=== PATIENT | male | born 1980 | race Caucasian/White ===

== ENCOUNTER 2018-03-29 10:54 | Emergency (ER) | payer BC ==
[2018-03-29] MEDS ORDERED: Aspirin 81 MG Tab.Chew PO ONE (11:36)
[2018-03-29] MEDS ORDERED: Alum Hydrox/Mag Hydrox/Simeth 15 ML, Lidocaine 2% 15 ML PO ONE ×2 (11:37)
--- NOTE | 2018-03-29 11:43 | EDM.PDOC ---
ED HPI GENERAL MEDICAL PROBLEM - General Chief Complaint: Chest Pain Stated Complaint: CHEST PAINS Time Seen by Provider: 03/29/18 11:25 Source of Information: Reports: Patient, Old Records, RN History Limitations: Reports: No Limitations - History of Present Illness INITIAL COMMENTS - FREE TEXT/NARRATIVE: 37 yo male here with epigastric pains slowly progessive over the past several weeks. Pain seems at times worse if he lies down. Not worse with exertion. No pHx of HTN. Is on no meds. No nausea, SOB, or diaphoresis. Partial relief with antacids. Is a non-smoker. No personal hx of CAD or AODM. Onset: Gradual Onset Date: 03/03/18 Duration: Week(s):, Getting Worse Location: Reports: Chest, Abdomen (epigastrium) Quality: Reports: Burning, Pressure Severity: Moderate Improves with: Reports: Other (? sitting up/antacids) Worsens with: Reports: Other (? 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: Reports: Other (see below) (none) Middle Chest Pain Score (Numeric/FACES): 3 - Related Data Allergies Allergy/AdvReac Type Severity Reaction Status Date / Time amoxicillin Allergy Abdominal Verified 03/29/18 11:18 Pain Home Meds: Home Meds NK [No Known Home Meds] 03/29/18 [History] Past Medical History HEENT History: Reports: Impaired Vision Respiratory History: Reports: SOB, Other (See Below) Other Respiratory History: SOB with activity recently Gastrointestinal History: Reports: Other (See Below) Other Gastrointestinal History: feels bloated Endocrine/Metabolic History: Reports: Obesity/BMI 30+ - Infectious Disease History Infectious Disease History: Reports: Chicken Pox - Past Surgical History Head Surgeries/Procedures: Reports: None Respiratory Surgical History: Reports: None Dermatological Surgical History: Reports: None Social & Family History - Tobacco Use Smoking Status *Q: Never Smoker Second Hand Smoke Exposure: No - Caffeine Use Caffeine Use: Reports: Soda - Recreational Drug Use Recreational Drug Use: No ED ROS GENERAL - Review of Systems Review Of Systems: See Below Constitutional: Reports: No Symptoms HEENT: Reports: No Symptoms Respiratory: Reports: No Symptoms Cardiovascular: Reports: Chest Pain (low, central) Endocrine: Reports: No Symptoms GI/Abdominal: Reports: Abdominal Pain (epigastric). Denies: Black Stool, Bloody Stool, Constipation, Diarrhea, Distension, Hematemesis, Hematochezia, Nausea, Vomiting : Reports: No Symptoms Musculoskeletal: Reports: No Symptoms Skin: Reports: No Symptoms Neurological: Reports: No Symptoms Psychiatric: Reports: No Symptoms ED EXAM, GENERAL - Physical Exam Exam: See Below Exam Limited By: No Limitations General Appearance: Alert, WD/WN, No Apparent Distress Eye Exam: Bilateral Eye: Normal Inspection Ears: Normal External Exam, Normal Canal, Hearing Grossly Normal Ear Exam: Bilateral Ear: Auricle Normal, Canal Normal Nose: Normal Inspection, Normal Mucosa, No Blood Throat/Mouth: Normal Inspection, Normal Lips, Normal Oropharynx, Normal Voice, No Airway Compromise Head: Atraumatic, Normocephalic Neck: Normal Inspection Respiratory/Chest: No Respiratory Distress, Lungs Clear, Normal Breath Sounds, No Accessory Muscle Use, Chest Non-Tender Cardiovascular: Regular Rate, Rhythm, No Edema GI/Abdominal: Normal Bowel Sounds, Soft, Non-Tender, No Distention Back Exam: Normal Inspection. No: CVA Tenderness (R), CVA Tenderness (L) Extremities: Normal Inspection, Normal Range of Motion, Non-Tender, No Pedal Edema Neurological: Alert, Oriented, CN II-XII Intact, Normal Cognition, No Motor/ Sensory Deficits Psychiatric: Normal Affect, Normal Mood Skin Exam: Warm, Dry, Intact, Normal Color, No Rash EKG INTERPRETATION EKG Date: 03/29/18 Time: 11:35 Rhythm: NSR Rate (Beats/Min): 60 [place]: Normal P-Wave: Present QRS: Normal ST-T: Normal QT: Normal Comparison: NA - No Prior EKG Course - Vital Signs Last Recorded V/S: Last Vital Signs Temp 36.1 C 03/29/18 12:18 Pulse 54 L 03/29/18 12:18 Resp 15 03/29/18 12:18 BP 122/77 03/29/18 12:18 Pulse Ox 97 03/29/18 12:18 - Orders/Labs/Meds Orders: Active Orders 24 hr Category Date Time Status Cardiac Monitoring [RC] .As Directed Care 03/29/18 11:37 Active EKG Documentation Completion [RC] ASDIRECTED Care 03/29/18 11:19 Active EKG 12 Lead [EK] Routine Ther 03/29/18 11:19 Ordered Labs: Laboratory Tests 03/29/18 Range/Units 11:37 Sodium 139 L (140-148) mmol/L Potassium 4.1 (3.6-5.2) mmol/L Chloride 101 (100-108) mmol/L Carbon Dioxide 29 (21-32) mmol/L Anion Gap 13.1 (5.0-14.0) mmol/L BUN 15 (7-18) mg/dL Creatinine 1.1 (0.8-1.3) mg/dL Est Cr Clr Drug Dosing 93.09 mL/min Estimated GFR (MDRD) > 60 (>60) Glucose 91 (74-106) mg/dL Calcium 9.6 (8.5-10.1) mg/dL Troponin I < 0.017 (0.000-0.056) ng/mL Meds: Medications Discontinued Medications Generic Name Dose Route Start Last Admin Trade Name Freq PRN Reason Stop Dose Admin Aspirin 324 mg 03/29/18 11:36 03/29/18 11:43 Aspirin PO 03/29/18 11:37 324 mg ONETIME ONE Administration Al Hydroxide/Mg Hydroxide 15 0 ml 03/29/18 11:37 03/29/18 11:43 ml/ Lidocaine HCl 15 ml PO 03/29/18 11:38 30 ml ONETIME ONE Administration Departure - Departure Time of Disposition: 12:23 Disposition: Home, Self-Care 01 Condition: Good Clinical Impression: Gastritis Qualifiers: Gastritis type: unspecified gastritis Chronicity: acute Gastritis bleeding: without bleeding Qualified Code(s): K29.00 - Acute gastritis without bleeding Instructions: Gastritis, Adult, [id number] Referrals: Tremaine Clark MD [Primary Care Provider] - Forms: ED Department Discharge Additional Instructions: Take famotidine 40 mg every evening starting today. Return a stool specimen for H. pylori testing. Return for exercise stress test to make sure this is not your heart. Return here if you are worse. See your provider a couple days after your stress test. - My Orders Last 24 Hours: My Active Orders 03/29/18 11:19 EKG Documentation Completion [RC] ASDIRECTED EKG 12 Lead [EK] Routine 03/29/18 11:37 Cardiac Monitoring [RC] .As Directed - Assessment/Plan Last 24 Hours: My Active Orders 03/29/18 11:19 EKG Documentation Completion [RC] ASDIRECTED EKG 12 Lead [EK] Routine 03/29/18 11:37 Cardiac Monitoring [RC] .As Directed
== END 2018-03-29 12:38 | disposition home or self-care (01) ==
LOC: JP.ED 10:54
DX: K29.00 Acute gastritis without bleeding (principal); Z88.1 Allergy status to other antibiotic agents
CPT/HCPCS: 36415; 80048; 84484; 93005; 99285; A9270

== ENCOUNTER 2018-04-19 07:29 | Day surgery (SDC) | payer BC ==
[~2018-04-19 07:29] MED LIST: fentaNYL 100 MCG/2 ML SDV ONE
[2018-04-19] MEDS ORDERED: fentaNYL 100 MCG/2 ML SDV ONE (07:35)
[2018-04-19] MEDS ORDERED: Propofol 200 MG/20 ML SDV ONE (07:35)
[2018-04-19] MEDS ORDERED: Midazolam 1 MG/ML 2 ML SDV ONE (07:35)
[2018-04-19] MEDS ORDERED: Dextrose 5%-Lactated Ringers 1,000 ML IV SCH (08:00)
[2018-04-19] MEDS ORDERED: Glycopyrrolate 0.2 MG/ML 2 ML SDV IVPUSH ONE (08:45)
--- NOTE | 2018-04-26 12:59 | OR ---
DATE OF PROCEDURE: 04/19/2018 PREOPERATIVE DIAGNOSIS: Upper abdominal pain. POSTOPERATIVE DIAGNOSIS: Upper abdominal pain associated with small hiatal hernia with loss of esophagogastric angle with associated minimal gross inflammation. OPERATIVE PROCEDURE: Esophagogastroduodenoscopy with: 1. Biopsies of esophagogastric junction for histologic evaluation. 2. Biopsies of antrum for CLOtest. ANESTHESIA: IV sedation. INDICATIONS FOR PROCEDURE: This is a 37-year-old presenting with a picture of some upper abdominal discomfort, some nausea, and bloating, particularly in the postprandial period, recently was started on Pepcid which he thinks has not helped significantly. The plan is to proceed with upper endoscopy with biopsies as indicated. Potential risks including bleeding and perforation were discussed, and the patient wishes to proceed. DETAILS OF PROCEDURE: The patient was taken to the operating room and placed in a left lateral decubitus position. IV sedation was administered after which the upper GI endoscope was passed orally through the length of the esophagus into the stomach with retroflexion view of the fundus and thereafter through the pyloric channel and into the duodenum to the junction of the third and fourth portions. Findings included a small hiatal hernia. This was associated with loss of esophagogastric junction angle. The view from the distal esophagus and the stomach was fairly wide-open. This was associated, however, with minimal gross inflammation. The scope was then passed further into the stomach, and retroflexion revealed the hiatal hernia once again otherwise, no abnormalities were noted from there or into the distal stomach. The pyloric channel and visualized portions of the duodenum were unremarkable. At this point, biopsies were obtained from the antrum to establish the patient's H. pylori status, and then multiple biopsies were obtained from the esophagogastric junction for histologic evaluation. Minimal bleeding from the biopsy sites was seen and the procedure concluded. The patient was taken to the recovery room in satisfactory condition. We will have the patient continue the Pepcid at this point, but the endoscopic findings today do not satisfactorily explain his symptoms. The plan will be to proceed next with a CCK-stimulated HIDA scan to rule out biliary dyskinesia. This will be set up for this coming Thursday, and I will see him after the exam has been completed and go from there based on those findings. Kimani Eng MD /[id number]
== END 2018-04-19 11:32 | disposition home or self-care (01) ==
LOC: JP.SDS 07:29
PROVIDERS: ATTEND Surgery
DX: R10.10 Upper abdominal pain, unspecified (principal); K20.0 Eosinophilic esophagitis; K21.9 Gastro-esophageal reflux disease without esophagitis; K44.9 Diaphragmatic hernia without obstruction or gangrene; K22.0 Achalasia of cardia; Z88.0 Allergy status to penicillin
CPT/HCPCS: 43239; 87081; J2250; J2704; J3010; J3490; J7042; 88305

== ENCOUNTER 2018-05-07 05:31 | Day surgery (SDC) | payer BC ==
[2018-05-07] MEDS ORDERED: Celecoxib 200 MG Cap PO ONE (05:45)
[2018-05-07] MEDS ORDERED: Acetaminophen 500 MG Tab PO ONE (05:45)
[2018-05-07] MEDS ORDERED: Bupivacaine 0.5%/EPINEPHrine 1:200,000 50 ML MDV ONE (06:42)
[2018-05-07] MEDS ORDERED: Propofol 200 MG/20 ML SDV ONE (07:07)
[2018-05-07] MEDS ORDERED: Neostigmine Methylsulfate 1 MG/ML 5 ML Syringe ONE (07:07)
[2018-05-07] MEDS ORDERED: Midazolam 1 MG/ML 2 ML SDV ONE (07:07)
[2018-05-07] MEDS ORDERED: fentaNYL 250 MCG/5 ML SDV ONE (07:07)
[2018-05-07] MEDS ORDERED: Glycopyrrolate 0.2 MG/ML 5 ML MDV ONE (07:07)
[2018-05-07] MEDS: Dextrose 5%-Lactated Ringers 1,000 ML IV SCH ×2 (07:07→14:37)
[2018-05-07] MEDS ORDERED: Rocuronium 50 MG/5 ML Vial ONE (07:07)
[2018-05-07] MEDS ORDERED: Ondansetron 4 MG/2 ML SDV ONE (07:07)
[2018-05-07] MEDS ORDERED: Dexamethasone 4 MG/ML SDV ONE (07:07)
[2018-05-07] MEDS ORDERED: cefOXitin 2 GM in Sodium Chloride 0.9% 50 ML IV ONE (07:15)
[2018-05-07] MEDS ORDERED: Ketamine 500 MG/5 ML MDV IV SCH (07:30)
[2018-05-07] MEDS ORDERED: Ropivacaine 56 ML, Dexamethasone 8 MG, EPINEPHrine 0.4 MG, Sodium Chloride 0.9% 21.6 ML NERVRT SCH ×4 (07:30)
[2018-05-07] MEDS ORDERED: Ketorolac 60 MG/2 ML SDV ONE (08:12)
[2018-05-07] MEDS ORDERED: hydrOXYzine HCl 100 MG/2 ML SDV IM ONE (08:37)
[2018-05-07] MEDS ORDERED: HYDROmorphone 0.5 MG/0.5 ML Syringe IVPUSH PRN (09:56)
[2018-05-07] MEDS ORDERED: HYDROmorphone 1 MG/ML Syringe IV PRN (09:56)
[2018-05-07] MEDS ORDERED: Ondansetron 4 MG/2 ML SDV IVPUSH PRN (09:58)
[2018-05-07] MEDS ORDERED: Pantoprazole 40 MG Vial IVPUSH SCH (11:00)
[2018-05-07] MEDS: Acetaminophen/oxyCODONE 325-5 MG Tab PO PRN ×2 (12:47→19:43)
[2018-05-07] MEDS: cefOXitin 2 GM in Sodium Chloride 0.9% 50 ML IV SCH ×2 (14:39→19:43)
[2018-05-08] MEDS: cefOXitin 2 GM in Sodium Chloride 0.9% 50 ML IV SCH (02:44)
[2018-05-08] MEDS ORDERED: Pantoprazole 40 MG Tab.CR PO SCH (07:30)
--- NOTE | 2018-05-08 09:50 | DISCH ---
ADMISSION DIAGNOSIS: Biliary dyskinesia. DISCHARGE DIAGNOSES: Laparoscopic cholecystectomy, umbilical hernia repair for biliary dyskinesia and umbilical hernia. Date of surgery, 05/07/2018. HISTORY: Agustin Fernando is a 38-year-old male with biliary dyskinesia. After preoperative evaluation and discussion of possible risks and possible complications, he wished to proceed with surgical procedure. HOSPITAL COURSE: Agustin had his surgery on 05/07/2018. He had no operative complications. On postoperative day #1, he was able to be discharged to home. The pain was well managed. Vital signs stable. Activity good. Intake and output adequate. PHYSICAL EXAMINATION: GENERAL: Agustin is a 38-year-old male. VITAL SIGNS: Height is 5 feet 10 inches and weight is 237 pounds. TPR 96.4, 82, 16, and blood pressure 118/71. HEENT: Negative. NECK: Supple. HEART: Regular rate and rhythm. LUNGS: Clear. ABDOMEN: Sutures intact. Incisions look good. Abdominal binder is on. EXTREMITIES: Without peripheral edema. DISPOSITION: Discharged to home. CONDITION: Stable and improving. FOLLOWUP APPOINTMENT: Zoey Lau PA-C, 05/06/2018 at 10:15 a.m. HOME MEDICATIONS: 1. Percocet 5/325 mg one q.3 hours p.r.n. pain, #40. 2. Famotidine 40 mg oral daily. 3. Multivitamin one daily. DIET: Usual diet as tolerated. Drink 8 to 10 glasses of water a day. ACTIVITY: No lifting greater than 10 pounds for 2 weeks. Driving: Do not drive for 1 week and while on pain medication. Shower/bathing, may shower. DISCHARGE INSTRUCTIONS: Notify provider if any fever, increased pain, nausea, or vomiting. Keep site clean and dry. Wear abdominal binder for 2 weeks and then as tolerated. Use incentive spirometer 10 times every hour while awake.
[2018-05-08] MEDS: Acetaminophen/oxyCODONE 325-5 MG Tab PO PRN (10:11)
[2018-05-08] MEDS ORDERED: Magnesium Hydroxide 400 MG/5 ML Susp 30 ML Cup PO ONE (11:24)
--- NOTE | 2018-05-17 12:28 | OR ---
DATE OF PROCEDURE: 05/07/2018 PREOPERATIVE DIAGNOSIS: Biliary dyskinesia. POSTOPERATIVE DIAGNOSES: 1. Biliary dyskinesia. 2. Umbilical hernia. OPERATIVE PROCEDURES: Diagnostic laparoscopy with: 1. Laparoscopic cholecystectomy (33046). 2. Repair of umbilical hernia (97754). ANESTHESIA: General. CANDY DIPPER: Zoey Lau PA-C, and CARLOS Murillo. INDICATION FOR PROCEDURE: This is a 38-year-old presenting with some ongoing right-sided abdominal pain occurring in episodes, probably in postprandial period. A CCK-stimulated HIDA scan was obtained which showed a below normal ejection fraction as well as the CCK injection caused reproduction of his symptoms. Given this, he is to undergo a laparoscopic cholecystectomy. Potential risks of procedure including bleeding, infection, injury to underlying viscera such as common bile duct, possibility of stones migrating into the common bile duct requiring additional procedures for correction, as well as possibility of persistent symptoms postoperatively were all gone over and the patient wishes to proceed. DETAILS OF PROCEDURE: The patient was taken to the operating room and placed in a supine position. After general endotracheal anesthesia was induced, the abdomen was prepped and draped. A transverse epigastric incision was made and the peritoneal cavity entered under direct vision with an Optiview trocar and inflated to 15 mmHg pressure with CO2. The laparoscope was then reinserted. No underlying trocar insertion site injuries were seen. Following this, the scope was visualized down towards the umbilicus. The patient had a palpable umbilical hernia containing some preperitoneal fat. A transverse incision was made just below the umbilicus and the dissection then continued, and the hernia contents were then dissected free and delivered from the field. The 12 mm umbilical trocar was then easily passed through the area of the hernia defect. One 5 mm additional trocar was placed in the right subcostal area and bilateral transversus abdominis plane blocks were then placed. The gallbladder was noted to be quite distended and somewhat edematous particularly in the area of the triangle. The gallbladder was retracted anteriorly and laterally, and dissection began around the gallbladder neck with Harmonic scalpel and continued around the gallbladder neck and cystic duct junction. Once that area was well delineated as well as the adjacent cystic artery, both structures were clipped 3 times proximally, once distally, and divided with Harmonic Scalpel. The gallbladder was then dissected off the gallbladder bed using the Harmonic scalpel and delivered from the field. There was noted to be some scar tissue as well as very intense cholesterolosis of the gallbladder mucosa was seen. The area of dissection was inspected, drain was not felt to be necessary. At that point, attention was taken to the umbilical hernia with the camera now in the epigastric trocar site. The trocar through the hernia site itself was removed and three sutures of 0 Vicryl stitch were then placed using the laparoscopic suture passer lining the closure in the transverse orientation. Following this, the epigastric site was closed at the fascia with 0 Vicryl stitch as well and the peritoneal cavity was deflated. Incisions were then closed with 4-0 Vicryl skin stitch after the fascial sutures had been tied and the patient taken to the recovery room in satisfactory condition. There were no evident complications. Physician assistant media buyer, Zoey Lau, played an essential role in assisting in this case, helping to position the patient, retract structures as needed, as well as suturing and cutting sutures when indicated. Her presence improved patient safety and decreased operative time. Kimani Eng MD /[id number]
== END 2018-05-08 11:48 | disposition home or self-care (01) ==
LOC: UNDOADMIN 05:31 → JP.SDSSCHI 05:31 → JP.SDS 05:31 → EDSTATUS 07:30 → JP.MS 08:30 → JP.2SS 09:30 → JP.SDSSCHI 09:30 → UNDODISIN 05-08 11:30 → JP.SDS 05-08 11:48
PROVIDERS: ATTEND Surgery
DX: K81.1 Chronic cholecystitis (principal); K82.8 Other specified diseases of gallbladder; K42.9 Umbilical hernia without obstruction or gangrene; E66.9 Obesity, unspecified; Z68.35 Body mass index [BMI] 35.0-35.9, adult; Z88.0 Allergy status to penicillin
CPT/HCPCS: 36415; 47562; 82247; 84075; 85027; 88304; A9270; C9113; J0171; J0694; J1100; J1170; J1885; J2250; J2405; J2704; J2710; J2795; J3010; J3410; J3490; J7042; J7050